=== PATIENT | male | born 1995 | race Caucasian/White ===

== ENCOUNTER 2018-05-30 16:48 | Emergency (ER) | payer OTHER ==
[2018-05-30] MEDS: ACETAMINOPHEN 325 MG TAB PO (20:07)
[2018-05-30] MEDS: KETOROLAC 60 MG INJ IM (20:07)
== END 2018-05-30 21:45 | disposition home or self-care (01) ==
LOC: FTE 16:48
DX: R05 Cough (principal); R50.9 Fever, unspecified
CPT/HCPCS: 96372; 99284-25